=== PATIENT | male | born 1960 | race Caucasian/White ===

== ENCOUNTER 2017-11-21 09:30 | Day surgery (SDC) | payer OTHER ==
[~2017-11-21] VITALS: Ht 167.6 cm; Wt 83.0 kg
[~2017-11-21 09:30] MED LIST: CEFAZOLIN 2 GM IVPB PREMIX 50 ML IV ONE
[2017-11-21] MEDS ORDERED: ROCURONIUM BROMIDE 10 MG/ML (ZEMURON) IV ONE (12:15)
[2017-11-21] MEDS ORDERED: BUPIVACAINE /PF 0.5% 30 ML VIAL INJ ONE (12:15)
[2017-11-21] MEDS ORDERED: SEVOFLURANE 15 MIN GAS INH ONE (12:15)
[2017-11-21] MEDS ORDERED: fentaNYL CITRATE 250 MCG/5 ML AMP IV ONE (12:15)
[2017-11-21] MEDS ORDERED: KETOROLAC TROMETHAMINE 30 MG VIAL IVP ONE (12:15)
[2017-11-21] MEDS ORDERED: MORPHINE SULFATE 10MG/10ML PF AMP EP ONE (12:15)
[2017-11-21] MEDS ORDERED: MIDAZOLAM HCL 5 MG/5 ML VIAL IVP ONE (12:15)
[2017-11-21] MEDS ORDERED: BUPIVACAINE /EPINEPHRINE/PF 0.25% 30 ML VIAL INJ ONE (12:15)
[2017-11-21] MEDS ORDERED: DEXAMETHASONE SOD PHOSPHATE 4 MG/ML VIAL IVP ONE (12:15)
[2017-11-21] MEDS ORDERED: NS IRRIG SOLN 1000 ML IR ONE (12:15)
[2017-11-21] MEDS ORDERED: CEFAZOLIN 2 GM IVPB PREMIX 50 ML IV ONE (12:15)
[2017-11-21] MEDS ORDERED: PROPOFOL 200MG/ 20ML VIAL (DIPRIVAN) IV ONE (12:15)
[2017-11-21] MEDS ORDERED: LR 1,000 ML IV SCH (13:09)
[2017-11-21] MEDS ORDERED: MEPERIDINE HCL/PF 25 MG/ML DISP.SYRIN IVP PRN (13:15)
[2017-11-21] MEDS ORDERED: MORPHINE 4 MG/ML INJ. SYRINGE IVP PRN ×4 (13:15→13:45)
[2017-11-21] MEDS ORDERED: D5LR 1,000 ML IV SCH (13:33)
[2017-11-21] MEDS ORDERED: DIPHENHYDRAMINE HCL 25 MG CAPSULE PO PRN (13:45)
[2017-11-21] MEDS ORDERED: HYDROcodone/ACETAMIN 5-325 MG TAB (NORCO/ VICODIN) PO PRN (13:45)
[2017-11-21 14:28] VITALS: BP_SYST 126
== END 2017-11-21 15:25 | disposition home or self-care (01) ==
LOC: SDS 09:30 → SMU 09:30 → EDBD 11:30 → SDS 15:25
PROVIDERS: ATTEND Orthopaedic Surgery
DX: M23.221 Derangement of posterior horn of medial meniscus due to old tear or injury, right knee (principal); M94.261 Chondromalacia, right knee; I10 Essential (primary) hypertension; Z79.899 Other long term (current) drug therapy; Z98.890 Other specified postprocedural states; E66.3 Overweight
CPT/HCPCS: 29881; J0690; J1100; J1885; J2250; J2274; J2704; J3010; J3490 ×2; J7120